=== PATIENT | male | born 1980 | race Caucasian/White ===

== ENCOUNTER 2016-10-05 09:51 | Emergency (ER) | payer OTHER, MEDICAID ==
[~2016-10-05] VITALS: Ht 172.7 cm; Wt 59.0 kg
[2016-10-05 09:51] VITALS: BP_SYST 125
[2016-10-05] MEDS ORDERED: PREDNISONE 20 MG TABLET PO ONE (10:30)
[2016-10-05] MEDS ORDERED: EPINEPHrine 1 MG/ML AMP IM ONE (10:30)
[2016-10-05 11:22] VITALS: BP_SYST 124
== END 2016-10-05 11:22 | disposition home or self-care (01) ==
LOC: SED 09:51
DX: L50.9 Urticaria, unspecified (principal)
CPT/HCPCS: 96372; 99283; J0171; J7512

== ENCOUNTER 2018-11-23 09:25 | Emergency (ER) | payer OTHER, MEDICAID ==
[~2018-11-23] VITALS: Ht 170.2 cm; Wt 56.7 kg
[2018-11-23 09:25] VITALS: BP_SYST 114
--- NOTE | 2018-11-23 09:25 | NUR ---
BROUGHT BACK TO BED #6 AND TRIAGED. REPORT GIVEN TO ZO
--- NOTE | 2018-11-23 09:40 | NUR ---
ER at bedside examining patient.
--- NOTE | 2018-11-23 09:45 | NUR ---
Patient arrived via POV, AAOx4, and ambulatory with steady gait. Patient states LUQ pain worsening over past 3 days, burning, sharp, and radiates to throat. He takes omeprazole for daily medication. Patient states nausea and diarrhea, no vomiting at this time. Patient denies chest pain or shortness of breathe. Patient has past surgical history of cardiac surgery. History of tricuspid atresia. Will continue to follow up and monitor.
--- NOTE | 2018-11-23 10:05 | NUR ---
Lab at bedside for draw. Will follow up regarding results.
[2018-11-23 10:38] LABS: BASOPHILS % (AUTO) 0.4 % (0.0-2.0); EOSINOPHILS # (AUTO) 0.1 K/uL (0.0-0.4); EOSINOPHILS % (AUTO) 1.5 % (0.0-4.0); HEMATOCRIT 53.6 % (36-54); HEMOGLOBIN 17.8 g/dL (14.0-18.0); LYMPHOCYTES # (AUTO) 1.2 K/uL (1.0-5.5); LYMPHOCYTES % (AUTO) 28.7 % (20.5-51.5); MEAN CORPUSCULAR HEMOGLOBIN 33 pg (27-31); MEAN CORPUSCULAR HGB CONC 33 % (32-36); MEAN CORPUSCULAR VOLUME 98 fL (79.0-98.0); MONOCYTES # (AUTO) 0.3 K/uL (0.0-1.0); NEUTROPHILS # (AUTO) 2.6 K/uL (1.8-7.7); NEUTROPHILS % (AUTO) 62.4 % (40.0-70.0); PLATELET COUNT (AUTO) 105 K/uL (130-430); RED BLOOD CELL COUNT(AUTO) 5.46 MIL/uL (4.2-6.2); RED CELL DISTRIBUTION WIDTH 13.7 % (9.0-15.0); WHITE BLOOD COUNT (AUTO) 4.2 K/uL (4.8-10.8)
--- NOTE | 2018-11-23 10:40 | NUR ---
Patient taken to CT scan, via wheelchair. Will follow up upon return.
[2018-11-23 10:50] LABS: CALCIUM 9.9 mg/dL (8.4-11.0); CREATININE 0.88 mg/dL (0.55-1.30)
[2018-11-23 10:54] LABS: ALBUMIN 4.2 g/dL (3.4-4.8); TOTAL BILIRUBIN 3.3 mg/dL (0.0-1.0)
[2018-11-23 10:55] LABS: PROTHROMBIN TIME 10.6 SECS (9.5-12.5)
--- NOTE | 2018-11-23 11:00 | NUR ---
Patient returned from CT scan, tolerated exam well. Will continue to follow up and monitor.
[2018-11-23 11:10] LABS: BILIRUBIN,URINE 1+ (NEGATIVE); BLOOD, URINE NEGATIVE (NEGATIVE); CLARITY/URINE CLEAR (CLEAR); COLOR,URINE YELLOW (YELLOW); GLUCOSE,URINE NEGATIVE (NEGATIVE); KETONES,URINE NEGATIVE (NEGATIVE); LEUKOCYTE ESTERASE ,URINE NEGATIVE (NEGATIVE); NITRITE, URINE NEGATIVE (NEGATIVE); PROTEIN URINE NEGATIVE (NEGATIVE)
--- NOTE | 2018-11-23 12:19 | NUR ---
Patient given written and verbal discharge instructions and verbalizes understanding. ER MD Urena discussed with patient the results and treatment provided. Patient in stable condition. ID arm band removed. Rx of Maalox, Omeprazole given. Patient educated on pain management and to follow up with PMD. Pain Scale 0. Opportunity for questions provided and answered. Medication side effect fact sheet provided.
[2018-11-23 12:20] VITALS: BP_SYST 123
== END 2018-11-23 12:20 | disposition home or self-care (01) ==
LOC: SED 09:25
DX: K21.9 Gastro-esophageal reflux disease without esophagitis (principal); Z86.79 Personal history of other diseases of the circulatory system
CPT/HCPCS: 36415; 80053; 81003; 83690-TC; 84484; 85025; 85610-TC; 85730-TC; 93005; 99284